=== PATIENT | male | born 1985 | race African-American/Black ===

== ENCOUNTER 2018-09-26 08:30 | Emergency (ER) | payer OTHER | END 2018-09-26 09:07 | disposition left against medical advice (07) | LOC: ERS 08:30 | DX: Z53.21 Procedure and treatment not carried out due to patient leaving prior to being seen by health care provider (principal) ==

== ENCOUNTER 2018-10-01 17:10 | Emergency (ER) | payer OTHER ==
[2018-10-01] MEDS ORDERED: Proparacaine 0.5% Opth 15 ML BOT ONE (18:46)
[2018-10-01] MEDS ORDERED: Fluorescein Opthalmic Strip ONE (18:46)
== END 2018-10-01 19:50 | disposition home or self-care (01) ==
LOC: ERS 17:10
DX: H20.9 Unspecified iridocyclitis (principal); I10 Essential (primary) hypertension; N28.9 Disorder of kidney and ureter, unspecified; F41.9 Anxiety disorder, unspecified; Z79.899 Other long term (current) drug therapy
CPT/HCPCS: 99283